=== PATIENT | male | born 1950 | race Caucasian/White ===

== ENCOUNTER 2017-05-30 16:59 | Emergency (ER) | payer MEDICARE, OTHER ==
[2017-05-30 17:30] VITALS: BP 132/64
--- NOTE | 2017-05-30 18:13 | ED Physician Documentation ---
History of Present Illness - Stated complaint Stated Complaint: LOW BP - Chief complaint Chief Complaint: Cardiac - History obtained from History obtained from: Patient, Other (PMD) - Additonal information Additional information: The patient is a 66-year-old male with history of Parkinson's disease, who was sent by private auto from his primary physician's office for further evaluation of low blood pressure and possible dysrhythmia. His blood pressure reading in the office was 106/66, and his pulse felt irregular. Electrocardiogram was performed, revealing a machine reading of sinus tachycardia with PACs, but with physician overread of possible atrial fibrillation with rapid ventricular response. The patient has been asymptomatic, reporting no chest pain, shortness of breath , lightheadedness, abdominal pain, nausea or vomiting, or change in color of his stools. Review of Systems Constitutional: denies: Fever, Chills Ears: denies: Tinnitus/ringing Nose: denies: Congestion Throat: denies: Sore throat Cardiac: denies: Chest pain / pressure, Palpitations Respiratory: denies: Dyspnea, Cough GI: denies: Abdominal Pain, Nausea, Vomiting : denies: Dysuria Skin: denies: Rash Musculoskeletal: denies: Back pain, Extremity swelling Neurologic: reports: Other (Parkinsonian tremors.). denies: Headache PD PAST MEDICAL HISTORY - Past Medical History Cardiovascular: Hypertension Neuro: Parkinson's Endocrine/Autoimmune: None - Present Medications Home Medications: Ambulatory Orders Medication Instructions Recorded Confirmed Carbidopa/Levodopa [Carbidopa-Levo 1 each PO DAILY 05/30/17 05/30/17 ER 50-200 Tab] Ropinirole HCl [Requip Xl] 8 mg PO DAILY 05/30/17 05/30/17 - Allergies Allergies/Adverse Reactions: Allergies Allergy/AdvReac Type Severity Reaction Status Date / Time No Known Drug Allergies Allergy Verified 05/30/17 17:12 - Living Situation Living Situation: reports: With spouse/s.o. Living Arrangement: reports: At home - Social History Does the pt smoke?: No PD ED PE NORMAL - Vitals Vital signs reviewed: Yes (Mild hypertension, with blood pressure 141/77. Normal pulse of 70.) - General General: Alert and oriented X 3, No acute distress, Well developed/nourished - HEENT HEENT: Atraumatic, EOMI, Pharynx benign - Neck Neck: No adenopathy, No JVD - Cardiac Cardiac: RRR, No murmur - Respiratory Respiratory: No respiratory distress, Clear bilaterally - Abdomen Abdomen: Soft, Non tender - Back Back: No CVA TTP - Derm Derm: No rash - Neuro Neuro: Alert and oriented X 3, No motor deficit, No sensory deficit, Other ( Parkinsonian tremors, most present in the right upper extremity.) Results - Vitals Vitals: Oxygen O2 Source Room air - EKG (time done) 17:21 Rate: Rate (enter#) (59) Rhythm: NSR [place]: Normal Intervals: Normal [place] QRS: Normal Ischemia: Normal ST segments Computer interpretation: Agree with computer PD MEDICAL DECISION MAKING - ED course Complexity details: reviewed results, re-evaluated patient, considered differential, d/w patient ED course: The patient presented from his primary physician's office where he was found to have low normal blood pressure and atrial tachycardia. He denies any symptoms associated with those findings, and remains asymptomatic in the emergency department. Repeat blood pressure here is slightly elevated at 141/77, and repeat prior to discharge is 132/64. Electrocardiogram here is completely normal with a normal sinus rhythm, rate of 59. Initially I ordered routine blood work, including CBC, chemistry panel, and troponin level. However the shoe dresser who initially attempted blood draw was unsuccessful, and the patient subsequently declined any further attempts at blood draw. Blood had been drawn in his primary physician's office, but the results are not available to me at this time. It is unlikely that the patient has had an acute myocardial event, so I do not think pursuing further workup at this time is clinically warranted. I discussed with him potentially worrisome signs or symptoms that should prompt reevaluation. Departure - Departure Disposition: 01 Home, Self Care Clinical Impression: Encounter for medical screening examination, Parkinson disease, History of atrial tachycardia Condition: Stable Instructions: ED Hypotension All Causes Follow-Up: Pablo Preciado MD [Provider Admit Priv/Credential] - Comments: Continue your medications as previously prescribed by Dr. Preciado. Follow up with your primary physician within 2 weeks. Return to the emergency department if you develop any lightheadedness, dizziness , shortness of breath, chest pain, or otherwise worsening symptoms. Discharge Date/Time: 05/30/17 18:19
== END 2017-05-30 18:19 | disposition home or self-care (01) ==
LOC: ED 16:59
DX: G20 Parkinson's disease (principal); I47.1 Supraventricular tachycardia; I10 Essential (primary) hypertension
CPT/HCPCS: 80053; 83690; 84484; 85025; 93005; 99283

== ENCOUNTER 2017-11-28 10:57 | Outpatient (CLI) | payer MEDICARE, OTHER ==
[2017-11-28 11:25] LABS: CALCIUM 8.9 mg/dL (8.5-10.3); CREATININE 0.8 mg/dL (0.6-1.2)
[2017-11-28] MEDS ORDERED: IOPAMIDOL-300 50 ML VIAL ONE (11:28)
[2017-11-28] MEDS ORDERED: IOPAMIDOL-300 100 ML VIAL ONE (11:28)
--- NOTE | 2017-11-28 13:29 | CT Report ---
Procedure Date: 11/28/2017 Accession Number: [id number] / [id number] Procedure: CT - Abdomen W/ CPT Code: FULL RESULT: EXAM: Abdomen W/ DATE: 11/28/2017 12:48 PM CLINICAL HISTORY: EPIGASTRIC DISCOMFORT COMPARISON: None. TECHNIQUE: Routine helical CT imaging was performed through the abdomen. IV contrast: 100 mL Isovue 300. Enteric contrast: Yes.. Reconstruction: Coronal and sagittal. In accordance with CT protocol optimization, one or more of the following dose reduction techniques were utilized for this exam: automated exposure control, adjustment of mA and/or KV based on patient size, or use of iterative reconstructive technique. FINDINGS: Lung Bases: Unremarkable. Liver: Normal. No masses. Gallbladder/Bile Ducts: Unremarkable. Spleen: Normal. Pancreas: Normal. No masses or ductal obstruction. Adrenal Glands: Normal. Kidneys: Cysts. No solid renal lesion or hydronephrosis. Peritoneal Cavity/Bowel: Normal. No free fluid, free air or adenopathy. No masses or acute inflammatory process. Vasculature: No aneurysms or other significant abnormality. Bones: No significant abnormality Other: None. IMPRESSION: No evident etiology for patient's epigastric discomfort. RADIA
[2017-12-03] MEDS ORDERED: IOPAMIDOL-300 50 ML VIAL PO ONE (07:24)
[2017-12-03] MEDS ORDERED: IOPAMIDOL-300 100 ML VIAL IVP ONE (07:24)
== END 2017-11-28 10:58 | disposition home or self-care (01) ==
LOC: LAB 10:57 → DI 10:58
PROVIDERS: ATTEND Family Medicine
DX: R10.13 Epigastric pain (principal)
CPT/HCPCS: 36415; 74160; 80048; Q9967

== ENCOUNTER 2018-05-07 14:17 | Outpatient (CLI) | payer MEDICARE, OTHER ==
[2018-05-07 19:05] LABS: BASOPHILS % (AUTO) 0.8 %; EOSINOPHILS % (AUTO) 0.8 %; HGB - HEMOGLOBIN 13.9 g/dL (14.0-18.0); LYMPHOCYTES # (AUTO) 1.5 10^3/uL (1.5-3.5); LYMPHOCYTES % (AUTO) 34.8 %; MEAN CORPUSCULAR HEMOGLOBIN 31.4 pg (27.0-31.0); MEAN CORPUSCULAR HGB CONC 33.2 g/dL (32.0-36.0); MEAN CORPUSCULAR VOLUME 94.5 fL (80.0-94.0); MEAN PLATELET VOLUME 10.4 fL (7.4-11.4); MONOCYTES # (AUTO) 0.3 10^3/uL (0.0-1.0); NEUTROPHILS # (AUTO) 2.4 10^3/uL (1.5-6.6); NEUTROPHILS % (AUTO) 55.6 %; PLT - PLATELET COUNT 160 10^3/uL (130-450); RED BLOOD COUNT 4.42 10^6/uL (4.70-6.10); RED CELL DISTRIBUTION WIDTH 13.3 % (12.0-15.0); WHITE BLOOD COUNT 4.3 x10^3/uL (4.8-10.8)
[2018-05-07 19:39] LABS: ALBUMIN 4.4 g/dL (3.2-5.5); ALBUMIN/GLOBULIN RATIO 1.8 (1.0-2.2); ALKALINE PHOSPHATASE 47 IU/L (42-121); ALT ALANINE AMINOTRANSFERASE < 10 IU/L (10-60); AST ASPARTATE AMINOTRANSFERASE 23 IU/L (10-42); BILIRUBIN,TOTAL 1.5 mg/dL (0.2-1.0); BUN - BLOOD UREA NITROGEN 27 mg/dL (6-20); CARBON DIOXIDE - CO2 28 mmol/L (21-32); CHLORIDE 104 mmol/L (101-111); CHOL/HDL RATIO 2.2 (<5.0); CHOLESTEROL 178 mg/dL; CREATININE 0.8 mg/dL (0.6-1.2); GFR - MDRD 96 (>89); GLUCOSE 99 mg/dL (70-100); HDL CHOLESTEROL 81 mg/dL; SODIUM 139 mmol/L (135-145); TOTAL PROTEIN 6.8 g/dL (6.7-8.2)
[2018-05-07 19:59] LABS: LDL CHOLESTEROL,DIRECT 91 mg/dL; LDLD/HDL RATIO 1.1 (<3.6)
== END 2018-05-07 14:18 | disposition home or self-care (01) ==
LOC: LAB.WCP 14:17
PROVIDERS: ATTEND Family Medicine
DX: I49.9 Cardiac arrhythmia, unspecified (principal); Z79.899 Other long term (current) drug therapy
CPT/HCPCS: 36415; 80053; 80061; 83721; 84443; 85025

== ENCOUNTER 2019-01-16 08:00 | Outpatient (CLI) | payer MEDICARE, OTHER ==
[2019-01-16 19:14] LABS: BASOPHILS % (AUTO) 0.5 %; EOSINOPHILS % (AUTO) 0.2 %; HGB - HEMOGLOBIN 13.9 g/dL (14.0-18.0); LYMPHOCYTES # (AUTO) 1.4 10^3/uL (1.5-3.5); LYMPHOCYTES % (AUTO) 31.4 %; MEAN CORPUSCULAR HEMOGLOBIN 31.5 pg (27.0-31.0); MEAN CORPUSCULAR VOLUME 98.4 fL (80.0-94.0); MEAN PLATELET VOLUME 12.7 fL (7.4-11.4); MONOCYTES # (AUTO) 0.4 10^3/uL (0.0-1.0); MONOCYTES % (AUTO) 9.1 %; NEUTROPHILS # (AUTO) 2.6 10^3/uL (1.5-6.6); NEUTROPHILS % (AUTO) 58.8 %; PLT - PLATELET COUNT 157 10^3/uL (130-450); RED BLOOD COUNT 4.41 10^6/uL (4.70-6.10); RED CELL DISTRIBUTION WIDTH 12.8 % (12.0-15.0); WHITE BLOOD COUNT 4.4 x10^3/uL (4.8-10.8)
[2019-01-16 19:45] LABS: ALBUMIN 4.3 g/dL (3.2-5.5); ALBUMIN/GLOBULIN RATIO 1.9 (1.0-2.2); ALKALINE PHOSPHATASE 36 IU/L (42-121); ALT ALANINE AMINOTRANSFERASE < 10 IU/L (10-60); AST ASPARTATE AMINOTRANSFERASE 27 IU/L (10-42); BILIRUBIN,TOTAL 1.6 mg/dL (0.2-1.0); BUN - BLOOD UREA NITROGEN 26 mg/dL (6-20); CREATININE 0.9 mg/dL (0.6-1.2); GFR - MDRD 83 (>89); TOTAL PROTEIN 6.6 g/dL (6.7-8.2)
[2019-01-16 19:55] LABS: CARBON DIOXIDE - CO2 26 mmol/L (21-32); CHLORIDE 109 mmol/L (101-111); GLUCOSE 118 mg/dL (70-100); SODIUM 144 mmol/L (135-145)
== END 2019-01-16 23:59 | disposition home or self-care (01) ==
LOC: LAB.WCP 08:00
PROVIDERS: ATTEND Family Medicine
DX: G20 Parkinson's disease (principal); Z12.5 Encounter for screening for malignant neoplasm of prostate
CPT/HCPCS: 36415; 80053; 85025; G0103; 84153

== ENCOUNTER 2019-07-10 12:59 | Outpatient (CLI) | payer MEDICARE, OTHER ==
--- NOTE | 2019-07-11 23:24 | Ultrasound Report ---
Reason: SCROTAL MASS Procedure Date: 07/10/2019 Accession Number: [id number] / [id number] Procedure: US - Testicle CPT Code: Final Report FULL RESULT: EXAM: SCROTAL ULTRASOUND EXAM DATE: 07/10/2019 01:04 PM. CLINICAL HISTORY: SCROTAL MASS. COMPARISON: None. TECHNIQUE: Real-time scanning was performed with static images obtained. Color-flow images were utilized. FINDINGS: Right: Testis: 3.7 x 2.1 x 3.0 cm. Normal size and echotexture. There is mild tubular ectasia of the rete testis. 2 intraparenchymal cysts are seen measuring 4 x 3 x 3 mm and 4 x 3 x 4 mm, respectively. No mass, calcification, or abnormal blood flow. Epididymis: 4.9 x 0.8 x 0.2 cm. Normal size and echotexture. A debris-filled cyst consistent with a spermatocele is seen in the epididymal head measuring 1.5 x 0.8 x 0.9 cm. A simple cyst is seen in the epididymal body measuring 7 x 4 x 14 mm. No abnormal blood flow. Hydrocele: Yes, containing debris Varicocele: Yes, measuring up to 3 mm with Valsalva maneuvers. Left: Testis: 4.1 x 1.8 x 3.0 cm. Normal size and echotexture. No mass, calcification, or abnormal blood flow. Epididymis: 5.3 x 1.0 x 0.6 cm. Normal size and echotexture. No mass or abnormal blood flow. Hydrocele: Yes. Varicocele: Yes, measuring up to 3.5 mm with Valsalva. IMPRESSION: 1. Tubular ectasia of the right rete testis with associated spermatocele. 2. Right debris-containing hydrocele. 3. Bilateral varicoceles. 4. Right epididymal cysts. RADIA
== END 2019-07-10 13:00 | disposition home or self-care (01) ==
LOC: DI 12:59
PROVIDERS: ATTEND Urology
DX: N43.41 Spermatocele of epididymis, single (principal); N43.3 Hydrocele, unspecified; I86.1 Scrotal varices; N50.3 Cyst of epididymis
CPT/HCPCS: 76870

== ENCOUNTER 2020-12-12 19:23 | Outpatient (CLI) | payer MEDICARE, OTHER | END 2020-12-12 19:24 | disposition EMS.NT | LOC: EMS 19:23 | DX: R23.2 Flushing (principal); R61 Generalized hyperhidrosis ==

== ENCOUNTER 2021-01-10 08:00 | Outpatient (CLI) | payer MEDICARE, OTHER ==
[2021-01-10 18:16] LABS: BASOPHILS % (AUTO) 0.6 %; EOSINOPHILS % (AUTO) 0.6 %; HCT - HEMATOCRIT 40.1 % (42.0-52.0); HGB - HEMOGLOBIN 12.9 g/dL (14.0-18.0); LYMPHOCYTES # (AUTO) 1.5 10^3/uL (1.5-3.5); LYMPHOCYTES % (AUTO) 29.5 %; MEAN CORPUSCULAR HEMOGLOBIN 30.9 pg (27.0-31.0); MEAN CORPUSCULAR HGB CONC 32.2 g/dL (32.0-36.0); MEAN CORPUSCULAR VOLUME 95.9 fL (80.0-94.0); MEAN PLATELET VOLUME 12.2 fL (7.4-11.4); MONOCYTES # (AUTO) 0.4 10^3/uL (0.0-1.0); MONOCYTES % (AUTO) 7.2 %; NEUTROPHILS # (AUTO) 3.1 10^3/uL (1.5-6.6); NEUTROPHILS % (AUTO) 61.9 %; PLT - PLATELET COUNT 171 10^3/uL (130-450); RED BLOOD COUNT 4.18 10^6/uL (4.70-6.10); RED CELL DISTRIBUTION WIDTH 12.7 % (12.0-15.0)
[2021-01-10 18:45] LABS: ALBUMIN 4.2 g/dL (3.2-5.5); ALBUMIN/GLOBULIN RATIO 1.8 (1.0-2.2); ALKALINE PHOSPHATASE 39 IU/L (42-121); ALT ALANINE AMINOTRANSFERASE < 10 IU/L (10-60); AST ASPARTATE AMINOTRANSFERASE 21 IU/L (10-42); BILIRUBIN,TOTAL 1.6 mg/dL (0.2-1.0); BUN - BLOOD UREA NITROGEN 24 mg/dL (6-20); CALCIUM 8.9 mg/dL (8.5-10.3); CARBON DIOXIDE - CO2 27 mmol/L (21-32); CHLORIDE 110 mmol/L (101-111); CHOL/HDL RATIO 2.3 (<5.0); CHOLESTEROL 152 mg/dL; CREATININE 0.7 mg/dL (0.6-1.2); GFR - MDRD 111 (>89); GLUCOSE 112 mg/dL (70-100); HDL CHOLESTEROL 67 mg/dL; POTASSIUM 3.9 mmol/L (3.5-5.0); SODIUM 143 mmol/L (135-145); TOTAL PROTEIN 6.5 g/dL (6.7-8.2); TRIGLYCERIDES 20 mg/dL
[2021-01-10 18:46] LABS: CREATININE,URINE 247.9 mg/dL; MICROALBUM/CREATININE RATIO,UR 4.8 ug/mg (<30.0); MICROALBUMIN,URINE 1.2 mg/dL (0-300.0)
[2021-01-10 18:53] LABS: THYROID STIMULATING HORMONE 0.8 uIU/mL (0.34-5.60)
[2021-01-10 20:24] LABS: ESTIMATED AVERAGE GLUCOSE 117 mg/dL (70-100); HEMOGLOBIN A1c% 5.7 % (4.27-6.07)
== END 2021-01-10 23:59 | disposition home or self-care (01) ==
LOC: LAB.WCP 08:00
PROVIDERS: ATTEND Internal Medicine
DX: G20 Parkinson's disease (principal); R73.01 Impaired fasting glucose; N40.1 Benign prostatic hyperplasia with lower urinary tract symptoms; R00.0 Tachycardia, unspecified
CPT/HCPCS: 36415; 80053; 80061; 82043; 82570; 83036; 83721; 84153; 84443; 85025

== ENCOUNTER 2021-11-29 12:41 | Outpatient (CLI) | payer MEDICARE, OTHER ==
--- NOTE | 2021-11-29 16:38 | MRI Report ---
PROCEDURE: Brain W/O INDICATIONS: PARKINSONS DISEASE TECHNIQUE: Noncontrast axial T1 spin echo, axial T2 fast spin echo, sagittal and axial FLAIR, coronal T2 fast sp in echo, axial gradient echo, axial diffusion and ADC through the brain. COMPARISON: None. FINDINGS: Global cerebral volume loss, moderate and advanced for age. Mild chronic microvascular ischemic turner es. There is no unexpected intracranial susceptibility. The major intracranial vascular flow-related signal voids are maintained. No restricted diffusion to indicate recent ischemia. Midline structures are normal in configuration. There is no mass effect or midline shift. The ventricular system and bas ilar cisterns are patent. No gross orbital abnormality. Paranasal sinuses and mastoid air cells are p redominantly clear. IMPRESSION: No acute intracranial abnormality. Global cerebral volume loss and chronic microvascular ischemic changes. Reviewed by: Jesus Calixto MD on 11/29/2021 4:37 PM PDT Approved by: Jesus Calixto MD on 11/29/2021 4:37 PM PDT Station ID: [id number]
== END 2021-11-29 12:42 | disposition home or self-care (01) ==
LOC: DI 12:41
PROVIDERS: ATTEND Internal Medicine
DX: G20 Parkinson's disease (principal); G31.89 Other specified degenerative diseases of nervous system; I67.82 Cerebral ischemia

== ENCOUNTER 2022-03-08 11:49 | Outpatient (CLI) | payer MEDICARE, OTHER ==
[2022-03-08 18:00] LABS: BASOPHILS % (AUTO) 0.5 %; EOSINOPHILS % (AUTO) 0.8 %; HCT - HEMATOCRIT 40.3 % (42.0-52.0); LYMPHOCYTES # (AUTO) 1.1 10^3/uL (1.5-3.5); LYMPHOCYTES % (AUTO) 29.2 %; MEAN CORPUSCULAR HEMOGLOBIN 30.1 pg (27.0-31.0); MEAN CORPUSCULAR HGB CONC 32.3 g/dL (32.0-36.0); MEAN CORPUSCULAR VOLUME 93.3 fL (80.0-94.0); MEAN PLATELET VOLUME 12.6 fL (7.4-11.4); MONOCYTES # (AUTO) 0.4 10^3/uL (0.0-1.0); MONOCYTES % (AUTO) 9.5 %; NEUTROPHILS # (AUTO) 2.2 10^3/uL (1.5-6.6); PLT - PLATELET COUNT 162 10^3/uL (130-450); RED BLOOD COUNT 4.32 10^6/uL (4.70-6.10); RED CELL DISTRIBUTION WIDTH 12.5 % (12.0-15.0); WHITE BLOOD COUNT 3.7 x10^3/uL (4.8-10.8)
[2022-03-08 18:22] LABS: ALBUMIN 4.3 g/dL (3.2-5.5); ALBUMIN/GLOBULIN RATIO 1.8 (1.0-2.2); ALKALINE PHOSPHATASE 35 IU/L (42-121); ALT ALANINE AMINOTRANSFERASE < 10 IU/L (10-60); AST ASPARTATE AMINOTRANSFERASE 26 IU/L (10-42); BILIRUBIN,TOTAL 1.5 mg/dL (0.2-1.0); BUN - BLOOD UREA NITROGEN 27 mg/dL (6-20); CALCIUM 9.3 mg/dL (8.5-10.3); CARBON DIOXIDE - CO2 30 mmol/L (21-32); CHLORIDE 106 mmol/L (101-111); CHOL/HDL RATIO 2.6 (<5.0); CHOLESTEROL 157 mg/dL; CREATININE 0.9 mg/dL (0.6-1.2); GFR - MDRD 83 (>89); GLUCOSE 129 mg/dL (70-100); HDL CHOLESTEROL 61 mg/dL; POTASSIUM 4.3 mmol/L (3.5-5.0); SODIUM 143 mmol/L (135-145); TOTAL PROTEIN 6.7 g/dL (6.7-8.2); TRIGLYCERIDES 19 mg/dL
[2022-03-08 18:23] LABS: THYROID STIMULATING HORMONE 0.88 uIU/mL (0.34-5.60)
[2022-03-08 20:55] LABS: ESTIMATED AVERAGE GLUCOSE 117 mg/dL (70-100); HEMOGLOBIN A1c% 5.7 % (4.27-6.07)
== END 2022-03-08 11:50 | disposition home or self-care (01) ==
LOC: LAB.N 11:49
PROVIDERS: ATTEND Internal Medicine
DX: G20 Parkinson's disease (principal); Z13.220 Encounter for screening for lipoid disorders; R73.01 Impaired fasting glucose; N40.1 Benign prostatic hyperplasia with lower urinary tract symptoms; R00.0 Tachycardia, unspecified
CPT/HCPCS: 36415; 80053; 80061; 83036; 83721; 84153; 84443; 85025

== ENCOUNTER 2022-04-30 11:10 | Emergency (ER) | payer MEDICARE, OTHER ==
--- NOTE | 2022-04-30 12:56 | ED Physician Documentation ---
History of Present Illness - Stated complaint Stated Complaint: FALL/LT LEG PX - Chief complaint Chief Complaint: Trauma Ext - Additonal information Additional information: 71-year-old male who has a history of Parkinson disorder presents the emergency department for evaluation of pain on his left hip and leg. He reports that he fell when trying to ascend some stairs on Saturday. He landed on his left side. Did not strike his head or lose consciousness but ever since then he has had difficulty ambulating at home and is now using a walker which she had not previously done. He is also having difficulty managing the stairs at his house. Patient did not strike his head or lose consciousness. He is not anticoagulated. He is denying pain of the head upper chest or back. Meds: Carbidopa/levodopa, as needed Flomax, Requip Review of Systems Constitutional: denies: Fever, Chills Cardiac: reports: Reviewed and negative Respiratory: reports: Reviewed and negative GI: reports: Reviewed and negative : reports: Reviewed and negative Musculoskeletal: reports: Back pain, Extremity pain, Joint pain Neurologic: reports: Reviewed and negative Psychiatric: reports: Reviewed and negative PD PAST MEDICAL HISTORY - Past Medical History Cardiovascular: Hypertension Endocrine/Autoimmune: None - Present Medications Home Medications: Ambulatory Orders Medication Instructions Recorded Confirmed Carbidopa/Levodopa [Carbidopa-Levo 1 each PO DAILY 05/30/17 05/30/17 ER 50-200 Tab] Ropinirole HCl [Requip Xl] 8 mg PO DAILY 05/30/17 05/30/17 - Allergies Allergies/Adverse Reactions: Allergies Allergy/AdvReac Type Severity Reaction Status Date / Time No Known Drug Allergies Allergy Verified 04/30/22 11:23 - Social History Does the pt smoke?: No PD ED PE NORMAL - General General: Alert and oriented X 3, No acute distress, Well developed/nourished, Other (Tall lanky gentleman. Sitting in a wheelchair) - HEENT HEENT: Atraumatic, Ears normal, Moist mucous membranes - Neck Neck: Supple, no meningeal sign, No adenopathy - Cardiac Cardiac: RRR, No murmur, No gallop - Respiratory Respiratory: No respiratory distress, Clear bilaterally - Abdomen Abdomen: Normal bowel sounds, Soft, Non tender - Back Back: No CVA TTP - Derm Derm: Normal color, Warm and dry - Extremities Extremities: No deformity, No tenderness to palpate. No: Normal ROM s pain ( No shortening or malrotation of the left leg. No tenderness elicited with palpation of the proximal femur or iliac crest pelvic girdle. There was some pain in the groin region with external rotation) - Neuro Neuro: Alert and oriented X 3, motel manager 2-12 intact Eye Opening: Spontaneous Motor: Obeys Commands Verbal: Oriented GCS Score: 15 Results - Vitals Vitals: Vital Signs - 24 hr 04/30/22 04/30/22 11:19 13:24 Temperature 36.9 C 36.7 C Heart Rate 68 62 Respiratory 16 20 Rate Blood Pressure 143/84 H 137/78 H O2 Saturation 100 98 Oxygen O2 Source Room air - Labs Labs: Laboratory Tests 04/30/22 04/30/22 13:15 13:15 WBC 6.2 RBC 4.15 L Hgb 12.7 L Hct 38.7 L MCV 93.3 MCH 30.6 MCHC 32.8 RDW 12.6 Plt Count 161 MPV 11.0 Neut # (Auto) 3.9 Lymph # (Auto) 1.4 L [place] # (Auto) 0.7 Eos # (Auto) 0.1 Baso # (Auto) 0.0 Absolute Nucleated RBC 0.00 Nucleated RBC % 0.0 Sodium 140 Potassium 4.3 Chloride 105 Carbon Dioxide 31 Anion Gap 4.0 L BUN 26 H Creatinine 0.8 Estimated GFR (MDRD) 95 Glucose 125 H Calcium 8.9 Total Bilirubin 0.7 AST 24 ALT < 10 L Alkaline Phosphatase 55 Total Protein 6.8 Albumin 4.1 Globulin 2.7 Albumin/Globulin Ratio 1.5 Lipase 59 H - Rads (name of study) CT abd Radiology: Final report received (No acute process. Nonobstructing right renal calculus. Normal appendix.) PD MEDICAL DECISION MAKING - ED course Complexity details: reviewed results, re-evaluated patient, considered differential, d/w patient, d/w family ED course: 71-year-old male presents to the emergency department for evaluation of left groin and hip pain. He had a witnessed fall about 48 hours ago when he was climbing some stairs at a store in [place] and fell onto his left side. With some assistance he was able to get up but over the last 48 hours he has had some pain especially with ambulation. This gentleman does have a longstanding history of Parkinson's for which she is on carbidopa levodopa. Reportedly underwent an MRI of his head a number of weeks ago and his neurologist reported that there were significant changes over the last 10 years indicating a progression of the Parkinson's disorder. On exam I was unable to elicit any tenderness with palpation of the pelvic ring proximal trochanter or femur. Most of the pain was elicited for the patient in the left medial groin region especially with walking or ambulation. X-ray of the hip and pelvis was negative. I did consider occult fracture and therefore performed a CT of the abdomen and pelvis with contrast with no acute findings noted. On reevaluation the patient was noted to be up and ambulating using a walker th ough he does have unsteady gait. I discussed with patient's the likelihood that an occult fracture exists to be around 10% or less. I did offer MRI imaging but she felt it was overkill today. Her biggest concern is managing the patient at home with a number of stairs in the house. I discussed that I did not feel that he was appropriate to a send stairs. At this time he is stable for discharge home. We have given the family resources on lift assist and I am making a recommendation to follow-up closely with primary care provider in order to obtain home health referral and evaluation. Unfortunately I think the fall from 48 hours ago Boni a progressive decline in his neurological and functional status with long-term Parkinson's disorder Departure - Departure Disposition: 01 Home, Self Care Clinical Impression: Parkinson's disease, Left groin pain Fall down stairs Qualifiers: Encounter type: initial encounter Qualified Code(s): W10.8XXA - Fall (on) (from) other stairs and steps, initial encounter Condition: Stable Record reviewed to determine appropriate education?: Yes Follow-Up: Olegario Whitley MD [Primary Care Provider] - Comments: Jose D was seen today in the emergency department for pain in the left groin and hip region after a fall downstairs 2 days ago. The x-ray of his hip and pelvis do not show anything worrisome. The CT of his abdomen and pelvis also did not show any obvious broken bones or worrisome process within the abdomen. We did obtain a CBC and electrolytes today that were also without worrisome findings. It is possible that there is a very subtle hip fracture that we are missing as MRI is the most sensitive. We did discuss the possibility of doing that today but The decision was made to defer that unless his symptoms fail to improve. Unfortunately I think that what we are seeing is a progressive decline in the functional status for Jose D due to his Parkinson's. Dr. Whitley is scheduled to see patients in follow-up for the ER. I would call his office this afternoon or early tomorrow in order to arrange follow-up. Jose D would benefit from referral for home health as well as progressive physical therapy for gait and balance. I do not think it is safe for Jose D to climb or descend the stairs to his bedroom at home as at think that that would put him at severe risk of a fall. I do recommend that most of the care be done down stairs in the living room area. If at any point he has further falls, strikes his head, loses consciousness or has any strokelike symptoms he should return immediately to the ER for second evaluation
[2022-04-30] MEDS ORDERED: iohexoL-300 100 ML VIAL ONE (13:18)
[2022-04-30 13:21] LABS: BASOPHILS % (AUTO) 0.5 %; EOSINOPHILS # (AUTO) 0.1 10^3/uL (0.0-0.7); EOSINOPHILS % (AUTO) 1.8 %; HCT - HEMATOCRIT 38.7 % (42.0-52.0); HGB - HEMOGLOBIN 12.7 g/dL (14.0-18.0); LYMPHOCYTES # (AUTO) 1.4 10^3/uL (1.5-3.5); LYMPHOCYTES % (AUTO) 22.5 %; MEAN CORPUSCULAR HEMOGLOBIN 30.6 pg (27.0-31.0); MEAN CORPUSCULAR HGB CONC 32.8 g/dL (32.0-36.0); MEAN CORPUSCULAR VOLUME 93.3 fL (80.0-94.0); MONOCYTES # (AUTO) 0.7 10^3/uL (0.0-1.0); MONOCYTES % (AUTO) 11.8 %; NEUTROPHILS # (AUTO) 3.9 10^3/uL (1.5-6.6); NEUTROPHILS % (AUTO) 63.1 %; PLT - PLATELET COUNT 161 10^3/uL (130-450); RED BLOOD COUNT 4.15 10^6/uL (4.70-6.10); RED CELL DISTRIBUTION WIDTH 12.6 % (12.0-15.0); WHITE BLOOD COUNT 6.2 x10^3/uL (4.8-10.8)
--- NOTE | 2022-04-30 13:27 | XRAY Report ---
PROCEDURE: Hip w/Pelvis 2-3V LT INDICATIONS: glf 4 days ago TECHNIQUE: AP pelvis with lateral view(s) of the left hip(s). COMPARISON: None. FINDINGS: Bones: No fractures or dislocations. Pelvic ring appears intact. No suspicious bony lesions. Soft tissues: The visualized bowel gas pattern is normal. No suspicious soft tissue calcifications. IMPRESSION: No acute fracture. No osseous lesion. If symptoms and/or clinical suspicion for patholog y continue, further assessment with repeat plain films, or advanced imaging (e.g., CT, MRI, or bone s can) is recommended for further assessment. Reviewed by: Izabella Pantoja MD on 04/30/2022 1:25 PM PST Approved by: Izabella Pantoja MD on 04/30/2022 1:25 PM [facility] [place] Station ID: [id number]
[2022-04-30 13:34] LABS: ALBUMIN 4.1 g/dL (3.2-5.5); ALBUMIN/GLOBULIN RATIO 1.5 (1.0-2.2); ALKALINE PHOSPHATASE 55 IU/L (42-121); ALT ALANINE AMINOTRANSFERASE < 10 IU/L (10-60); AST ASPARTATE AMINOTRANSFERASE 24 IU/L (10-42); BILIRUBIN,TOTAL 0.7 mg/dL (0.2-1.0); BUN - BLOOD UREA NITROGEN 26 mg/dL (6-20); CALCIUM 8.9 mg/dL (8.5-10.3); CARBON DIOXIDE - CO2 31 mmol/L (21-32); CHLORIDE 105 mmol/L (101-111); CREATININE 0.8 mg/dL (0.6-1.2); GFR - MDRD 95 (>89); GLUCOSE 125 mg/dL (70-100); LIPASE 59 U/L (22-51); POTASSIUM 4.3 mmol/L (3.5-5.0); SODIUM 140 mmol/L (135-145); TOTAL PROTEIN 6.8 g/dL (6.7-8.2)
[2022-04-30] MEDS ORDERED: iohexoL-300 100 ML VIAL IVP ONE (14:17)
--- NOTE | 2022-04-30 14:21 | CT Report ---
PROCEDURE: ABDOMEN/PELVIS W INDICATIONS: left hip pain after fall; ? groin pain CONTRAST: 100ml Omnipaque 300 TECHNIQUE: After the administration of IV contrast, 5 mm thick sections acquired from the diaphragms to the symp hysis. 5 mm thick coronal and sagittal reformats were acquired. For radiation dose reduction, the f ollowing was used: automated exposure control, adjustment of mA and/or kV according to patient size. COMPARISON: CT dated 11/28/2017 FINDINGS: Image quality: Excellent. ABDOMEN: Lung bases: Lung bases are clear. Heart size is normal. Solid organs: Liver and spleen are normal in size. There are a few small low-density foci within the right hepatic lobe, as before. Gallbladder is within normal limits Biliary system is non dilated. Pancreas enhances normally. No adrenal nodules. Kidneys demonstrate normal size and enhancement, wi thout hydronephrosis. Left parapelvic renal cysts are present, as before. There is a nonobstructing right interpolar renal calculus measuring 4 mm, new since the prior examination. No hydronephrosis. Peritoneum and bowel: Small hiatal hernia. Bowel loops demonstrate normal wall thickness and caliber . No free fluid or air. Normal appendix. Nodes and vessels: No retroperitoneal or mesenteric adenopathy by size criteria. Aorta and inferior vena cava are normal in size. Miscellaneous: No ventral hernias. PELVIS: Genitourinary: Bladder wall thickness is normal. Miscellaneous: No inguinal hernias or adenopathy. Bones: No suspicious bony lesions. No vertebral body compression fractures. IMPRESSION: 1. No acute process. 2. Nonobstructing right renal calculus. 3. Normal appendix. Reviewed by: Izabella Pantoja MD on 04/30/2022 2:20 PM PST Approved by: Izabella Pantoja MD on 04/30/2022 2:20 PM PST Station ID: [id number]
[2022-04-30 15:27] VITALS: BP 173/67
== END 2022-04-30 15:45 | disposition home or self-care (01) ==
LOC: ED 11:10
DX: M25.552 Pain in left hip (principal); W10.8XXA Fall (on) (from) other stairs and steps, initial encounter; I10 Essential (primary) hypertension; G20 Parkinson's disease
CPT/HCPCS: 36415; 73502; 74177; 80053; 83690; 85025; 99282; 99284; Q9967

== ENCOUNTER 2022-07-04 08:00 | Outpatient (CLI) | payer MEDICARE, OTHER ==
[2022-07-04 20:38] LABS: BASOPHILS % (AUTO) 0.6 %; EOSINOPHILS # (AUTO) 0.1 10^3/uL (0.0-0.7); EOSINOPHILS % (AUTO) 0.9 %; HCT - HEMATOCRIT 40.4 % (42.0-52.0); HGB - HEMOGLOBIN 12.7 g/dL (14.0-18.0); LYMPHOCYTES # (AUTO) 1.5 10^3/uL (1.5-3.5); LYMPHOCYTES % (AUTO) 28.5 %; MEAN CORPUSCULAR HEMOGLOBIN 30.2 pg (27.0-31.0); MEAN CORPUSCULAR HGB CONC 31.4 g/dL (32.0-36.0); MEAN PLATELET VOLUME 12.1 fL (7.4-11.4); MONOCYTES # (AUTO) 0.5 10^3/uL (0.0-1.0); MONOCYTES % (AUTO) 8.7 %; NEUTROPHILS # (AUTO) 3.3 10^3/uL (1.5-6.6); NEUTROPHILS % (AUTO) 61.1 %; PLT - PLATELET COUNT 175 10^3/uL (130-450); RED BLOOD COUNT 4.21 10^6/uL (4.70-6.10); RED CELL DISTRIBUTION WIDTH 12.5 % (12.0-15.0); WHITE BLOOD COUNT 5.4 x10^3/uL (4.8-10.8)
[2022-07-04 20:55] LABS: ALBUMIN/GLOBULIN RATIO 1.5 (1.0-2.2); ALKALINE PHOSPHATASE 68 IU/L (42-121); ALT ALANINE AMINOTRANSFERASE < 10 IU/L (10-60); AST ASPARTATE AMINOTRANSFERASE 19 IU/L (10-42); BUN - BLOOD UREA NITROGEN 28 mg/dL (6-20); CALCIUM 8.6 mg/dL (8.5-10.3); CARBON DIOXIDE - CO2 28 mmol/L (21-32); CHLORIDE 102 mmol/L (101-111); CREATININE 0.8 mg/dL (0.6-1.2); GFR - MDRD 94 (>89); GLUCOSE 102 mg/dL (70-100); POTASSIUM 4.1 mmol/L (3.5-5.0); SODIUM 140 mmol/L (135-145); TOTAL PROTEIN 6.6 g/dL (6.7-8.2)
== END 2022-07-04 23:59 | disposition home or self-care (01) ==
LOC: LAB.N 08:00
PROVIDERS: ATTEND Nurse Practitioner
DX: L03.90 Cellulitis, unspecified (principal)
CPT/HCPCS: 36415; 80053; 85025; 87070; 87077; 87181; 87205

== ENCOUNTER 2022-09-19 10:40 | Outpatient (CLI) | payer MEDICARE, OTHER ==
[2022-09-19 12:39] LABS: ESTIMATED AVERAGE GLUCOSE 137 mg/dL (70-100); HEMOGLOBIN A1c% 6.4 % (4.27-6.07)
[2022-09-19 13:25] LABS: CALCIUM 8.8 mg/dL (8.5-10.3); CREATININE 0.8 mg/dL (0.6-1.2); POTASSIUM 3.8 mmol/L (3.5-5.0)
== END 2022-09-19 10:41 | disposition home or self-care (01) ==
LOC: LAB.N 10:40
PROVIDERS: ATTEND Internal Medicine
DX: R73.01 Impaired fasting glucose (principal)
CPT/HCPCS: 36415; 80048; 83036

== ENCOUNTER 2023-01-23 15:59 | Outpatient (CLI) | payer MEDICARE, OTHER ==
[2023-01-23 18:01] LABS: BASOPHILS % (AUTO) 0.8 %; EOSINOPHILS # (AUTO) 0.1 10^3/uL (0.0-0.7); EOSINOPHILS % (AUTO) 1.5 %; HCT - HEMATOCRIT 40.7 % (42.0-52.0); HGB - HEMOGLOBIN 13.2 g/dL (14.0-18.0); LYMPHOCYTES # (AUTO) 1.6 10^3/uL (1.5-3.5); LYMPHOCYTES % (AUTO) 34.1 %; MEAN CORPUSCULAR HEMOGLOBIN 30.7 pg (27.0-31.0); MEAN CORPUSCULAR HGB CONC 32.4 g/dL (32.0-36.0); MEAN CORPUSCULAR VOLUME 94.7 fL (80.0-94.0); MONOCYTES # (AUTO) 0.5 10^3/uL (0.0-1.0); MONOCYTES % (AUTO) 9.4 %; NEUTROPHILS # (AUTO) 2.6 10^3/uL (1.5-6.6); PLT - PLATELET COUNT 169 10^3/uL (130-450); RED CELL DISTRIBUTION WIDTH 12.6 % (12.0-15.0); WHITE BLOOD COUNT 4.8 x10^3/uL (4.8-10.8)
[2023-01-23 18:02] LABS: ALBUMIN 4.2 g/dL (3.2-5.5); ALBUMIN/GLOBULIN RATIO 1.8 (1.0-2.2); ALKALINE PHOSPHATASE 50 IU/L (42-121); ALT ALANINE AMINOTRANSFERASE 4 IU/L (10-60); AST ASPARTATE AMINOTRANSFERASE 19 IU/L (10-42); BILIRUBIN,TOTAL 1.5 mg/dL (0.2-1.0); BUN - BLOOD UREA NITROGEN 14 mg/dL (6-20); CALCIUM 9.3 mg/dL (8.5-10.3); CARBON DIOXIDE - CO2 31 mmol/L (21-32); CHLORIDE 105 mmol/L (101-111); CHOL/HDL RATIO 2.2 (<5.0); CHOLESTEROL 146 mg/dL; CREATININE 0.8 mg/dL (0.6-1.3); GFR - MDRD 94 (>89); GLUCOSE 106 mg/dL (74-104); HDL CHOLESTEROL 66 mg/dL; POTASSIUM 4.4 mmol/L (3.5-4.5); SODIUM 138 mmol/L (135-145); TOTAL PROTEIN 6.5 g/dL (6.4-8.9); TRIGLYCERIDES 31 mg/dL (48-352)
[2023-01-23 20:08] LABS: ESTIMATED AVERAGE GLUCOSE 120 mg/dL (70-100); HEMOGLOBIN A1c% 5.8 % (4.27-6.07)
== END 2023-01-23 16:00 | disposition home or self-care (01) ==
LOC: LAB.N 15:59
PROVIDERS: ATTEND Internal Medicine
DX: R73.03 Prediabetes (principal); G20 Parkinson's disease; Z79.899 Other long term (current) drug therapy
CPT/HCPCS: 36415; 80053; 80061; 83036; 83721; 85025

== ENCOUNTER 2023-12-26 15:41 | Outpatient (CLI) | payer MEDICARE, OTHER ==
[2023-12-26 17:35] LABS: BASOPHILS % (AUTO) 0.4 %; EOSINOPHILS # (AUTO) 0.1 10^3/uL (0.0-0.7); HCT - HEMATOCRIT 41.4 % (42.0-52.0); HGB - HEMOGLOBIN 13.3 g/dL (14.0-18.0); LYMPHOCYTES # (AUTO) 1.6 10^3/uL (1.5-3.5); LYMPHOCYTES % (AUTO) 33.1 %; MEAN CORPUSCULAR HEMOGLOBIN 30.4 pg (27.0-31.0); MEAN CORPUSCULAR HGB CONC 32.1 g/dL (32.0-36.0); MEAN CORPUSCULAR VOLUME 94.5 fL (80.0-94.0); MEAN PLATELET VOLUME 12.1 fL (7.4-11.4); MONOCYTES # (AUTO) 0.4 10^3/uL (0.0-1.0); MONOCYTES % (AUTO) 8.1 %; NEUTROPHILS # (AUTO) 2.8 10^3/uL (1.5-6.6); NEUTROPHILS % (AUTO) 57.2 %; PLT - PLATELET COUNT 207 10^3/uL (130-450); RED BLOOD COUNT 4.38 10^6/uL (4.70-6.10); RED CELL DISTRIBUTION WIDTH 12.3 % (12.0-15.0); WHITE BLOOD COUNT 4.8 x10^3/uL (4.8-10.8)
[2023-12-26 17:46] LABS: ALBUMIN 4.1 g/dL (3.2-5.5); ALBUMIN/GLOBULIN RATIO 2.2 (1.0-2.2); BILIRUBIN,TOTAL 1.1 mg/dL (0.2-1.0); CALCIUM 9.5 mg/dL (8.5-10.3); CREATININE 0.7 mg/dL (0.6-1.3); POTASSIUM 3.9 mmol/L (3.5-4.5)
[2023-12-26 18:05] LABS: THYROID STIMULATING HORMONE 1.19 uIU/mL (0.34-5.60)
[2023-12-26 21:39] LABS: ESTIMATED AVERAGE GLUCOSE 117 mg/dL (70-100); HEMOGLOBIN A1c% 5.7 % (4.27-6.07)
== END 2023-12-26 15:42 | disposition home or self-care (01) ==
LOC: LAB.N 15:41
PROVIDERS: ATTEND Psychiatry & Neurology Neurology
DX: R73.03 Prediabetes (principal); R53.83 Other fatigue; E55.9 Vitamin D deficiency, unspecified; I34.0 Nonrheumatic mitral (valve) insufficiency
CPT/HCPCS: 36415; 80053; 80061; 82306; 82607; 82746; 83036; 83721; 84443; 85025

== ENCOUNTER 2024-03-07 13:05 | Emergency (ER) | payer MEDICARE, OTHER ==
--- NOTE | 2024-03-07 14:23 | ED Physician Documentation ---
History of Present Illness - Stated complaint Stated Complaint: RT HAND LIMP - Chief complaint Chief Complaint: Neuro - Additonal information Additional information: 73-year-old male with advanced Parkinson's presents emergency department for right arm weakness. Patient says he took a nap on Saturday when he awoke he could not raise his hand to his mouth. Overall since then it has improved but he is having a hard time grasping or holding things. He had a virtual appointment with his neurologist yesterday who told him that he need to come to the emergency department to get evaluated for possible stroke and he did not come in yesterday because he felt like it was too late to come to the emergency department. He is not on any blood thinners he has no history of strokes in the past. Daily medications that he takes daily or his carbidopa levodopa and ropinirole. His neurologist is Dr. Carmona in [place]. PD PAST MEDICAL HISTORY - Past Medical History Past Medical History: Yes Cardiovascular: Hypertension Respiratory: None Neuro: Parkinson's Endocrine/Autoimmune: None GI: None : None HEENT: None Psych: None Musculoskeletal: Chronic back pain - Past Surgical History Past Surgical History: Yes HEENT: Tonsil/Adenoidectomy - Present Medications Home Medications: Ambulatory Orders Medication Instructions Recorded Confirmed Carbidopa/Levodopa [Carbidopa-Levo 1 each PO QID 05/30/17 07/18/22 ER 50-200 Tab] Cholecalciferol [Vitamin D3] 1 cap PO DAILY 07/18/22 07/18/22 [place]-3S/Dha/Epa/Fish Oil [Fish 1 cap PO DAILY 07/18/22 07/18/22 Oil 1,200 mg Softgel] Ropinirole HCl [Ropinirole ER] 2 mg PO DAILY 07/18/22 07/18/22 Ropinirole HCl [Ropinirole ER] 4 mg PO QPM 07/18/22 07/18/22 Tamsulosin [Flomax] 1 cap PO QPM 07/18/22 07/18/22 Multivitamin 1 tab PO DAILY 09/13/22 09/13/22 - Allergies Allergies/Adverse Reactions: Allergies Allergy/AdvReac Type Severity Reaction Status Date / Time No Known Drug Allergies Allergy Verified 03/07/24 13:36 - Social History Does the pt smoke?: No Smoking Status: Never smoker Does the pt drink ETOH?: Yes Does the pt have substance abuse?: No - Immunizations Immunizations are current?: No Immunizations: Other immun not current - POLST Patient has POLST: No PD ED PE NORMAL - Vitals Vital signs reviewed: Yes - General General: Alert and oriented X 3, No acute distress, Well developed/nourished - HEENT HEENT: PERRL, EOMI, Moist mucous membranes - Cardiac Cardiac: RRR - Respiratory Respiratory: No respiratory distress, Clear bilaterally - Abdomen Abdomen: Normal bowel sounds, Soft, Non tender, Non distended, No organomegaly - Derm Derm: Normal color, Warm and dry, No rash - Neuro Neuro: Alert and oriented X 3, No sensory deficit, Normal speech Eye Opening: Spontaneous Motor: Obeys Commands Verbal: Oriented GCS Score: 15 - Psych Psych: Normal mood, Normal affect PD ED PE EXPANDED - Neuro Neuro: Normal motor (difficulty with resistance of RUE), Normal Sensation, PERRL, Normal finger nose, Other (RUE 4/5, LUE 5/5). No: Dyscongugate gaze, Nystagmus, Aphasia Results - Vitals Vitals: Vital Signs - 24 hr 03/07/24 03/07/24 03/07/24 13:36 13:43 14:43 Temperature 36.1 C L Heart Rate 62 57 L 45 L Respiratory 18 16 18 Rate Blood Pressure 149/77 H 174/76 H 172/71 H O2 Saturation 100 99 100 03/07/24 03/07/24 03/07/24 15:30 16:00 16:30 Temperature Heart Rate 46 L 48 L 49 L Respiratory 12 14 18 Rate Blood Pressure 158/53 H 196/78 H 177/71 H O2 Saturation 99 99 99 03/07/24 03/07/24 03/07/24 17:00 17:30 18:30 Temperature Heart Rate 82 52 L 56 L Respiratory 20 20 18 Rate Blood Pressure 170/81 H 161/84 H 191/69 H O2 Saturation 52 L 99 99 03/07/24 03/07/24 19:00 19:20 Temperature Heart Rate 62 56 L Respiratory 18 10 L Rate Blood Pressure 182/74 H 182/74 H O2 Saturation 100 100 Oxygen O2 Source Room air - EKG (time done) 1431 EKG releavant findings:: EKG personally interpreted by author of this note. Relevant findings are: Rate: Rate (enter#) (51) Rhythm: NSR [place]: RAD QRS: Normal Ischemia: Normal ST segments Computer interpretation: Agree with computer - Labs Labs: Laboratory Tests 03/07/24 03/07/24 03/07/24 14:35 14:35 14:48 WBC 6.1 RBC 4.13 L Hgb 12.6 L Hct 39.2 L MCV 94.9 H MCH 30.5 MCHC 32.1 RDW 12.3 Plt Count 195 MPV 10.9 Neut # (Auto) 3.8 Lymph # (Auto) 1.6 [place] # (Auto) 0.6 Eos # (Auto) 0.1 Baso # (Auto) 0.0 Absolute Nucleated RBC 0.00 Nucleated RBC % 0.0 PT 12.7 H INR 1.2 Sodium 144 Potassium 3.7 Chloride 108 Carbon Dioxide 30 Anion Gap 6.0 BUN 26 H Creatinine 0.8 Estimated GFR (MDRD) 94 Glucose 118 H Calcium 9.2 Total Bilirubin 0.8 AST 23 ALT 3 L Alkaline Phosphatase 65 Total Protein 6.1 L Albumin 3.9 Globulin 2.2 Albumin/Globulin Ratio 1.8 Lipase 24 - Rads (name of study) Head CT without Relevant Findings:: Final report received, EMP independent interpretation of test, Other (Posterior fossa arachnoid cysts stable and unchanged. No acute intracranial abnormalities or findings.) Angio head and neck CT Relevant Findings:: Final report received, EMP independent interpretation of test, Other (No significant intracranial arterial abnormality seen no significant abnormality seen within the arteries in the neck.) Brain MRI without Relevant Findings:: Final report received, EMP independent interpretation of test, Other (No acute infarction no intracranial bleed midline shift or mass effect. Age-related volume loss and mild white matter chronic ischemic small ve ssel disease.) PD Medical Decision Making - ED course ED course: 73-year-old male presents emergency department for concerns of right arm weakness. Differentials include but not limited to advanced Parkinson's, possible CVA versus TIA, possible pinched nerve. Labs are complete for further evaluation no leukocytosis mild anemia hemoglobin 12.6 PT/INR unremarkable, electrolytes and kidney function appear to be within normal limits as well. Head CT was completed for further evaluation and no acute abnormalities are visualized. EKG was also found to be unremarkable and no A-fib. CT angio head and neck did not reveal any head or neck arterial abnormalities. We pursued a brain MRI without contrast for further investigation of possible TIA and no acute infarctions are visualized no intracranial bleed midline shift or mass effect there was chronic findings of chronic ischemic small vessel disease and age-related volume loss. Patient was reassured after finding out this information has a follow-up appoint with his neurologist coming up and said that they would call and let him know about today's ER findings. I do not see any need for further emergent workup. He is given return precautions told to follow-up with his neurologist outpatient NIH score is 1 patient is safe for discharge at this time. Departure - Departure Disposition: 01 Home, Self Care Clinical Impression: Right arm weakness, Dizziness Instructions: ED Weakness [facility] Comments: Thank you for trusting us with your care. We have completed a thorough workup while you are here in the emergency department including labs, head CT, CT angio head and neck, MRI brain and all findings have come back within normal limits. Please follow-up with your neurologist to discuss today's ER visit and discuss further outpatient workup and treatment. Forms: PCP List Discharge Date/Time: 03/07/24 19:41
[2024-03-07 14:43] LABS: BASOPHILS % (AUTO) 0.5 %; EOSINOPHILS # (AUTO) 0.1 10^3/uL (0.0-0.7); EOSINOPHILS % (AUTO) 1.6 %; HCT - HEMATOCRIT 39.2 % (42.0-52.0); HGB - HEMOGLOBIN 12.6 g/dL (14.0-18.0); LYMPHOCYTES # (AUTO) 1.6 10^3/uL (1.5-3.5); LYMPHOCYTES % (AUTO) 26.1 %; MEAN CORPUSCULAR HEMOGLOBIN 30.5 pg (27.0-31.0); MEAN CORPUSCULAR HGB CONC 32.1 g/dL (32.0-36.0); MEAN CORPUSCULAR VOLUME 94.9 fL (80.0-94.0); MEAN PLATELET VOLUME 10.9 fL (7.4-11.4); MONOCYTES # (AUTO) 0.6 10^3/uL (0.0-1.0); MONOCYTES % (AUTO) 9.6 %; NEUTROPHILS # (AUTO) 3.8 10^3/uL (1.5-6.6); PLT - PLATELET COUNT 195 10^3/uL (130-450); RED BLOOD COUNT 4.13 10^6/uL (4.70-6.10); RED CELL DISTRIBUTION WIDTH 12.3 % (12.0-15.0); WHITE BLOOD COUNT 6.1 x10^3/uL (4.8-10.8)
[2024-03-07 14:56] LABS: ALBUMIN 3.9 g/dL (3.2-5.5); ALBUMIN/GLOBULIN RATIO 1.8 (1.0-2.2); BILIRUBIN,TOTAL 0.8 mg/dL (0.2-1.0); CALCIUM 9.2 mg/dL (8.5-10.3); CREATININE 0.8 mg/dL (0.6-1.3); POTASSIUM 3.7 mmol/L (3.5-4.5); TOTAL PROTEIN 6.1 g/dL (6.4-8.9)
[2024-03-07] MEDS ORDERED: iohexoL-300 100 ML VIAL ONE (15:05)
[2024-03-07 15:24] LABS: INR 1.2 (0.8-1.2); PT - PROTHROMBIN TIME 12.7 secs (9.9-12.6)
[2024-03-07] MEDS: iohexoL-300 100 ML VIAL IVP ONE (15:40)
--- NOTE | 2024-03-07 16:00 | CT Report ---
PROCEDURE: Head WO INDICATIONS: Neuro deficit, acute, stroke suspected TECHNIQUE: Noncontrast 4.5 mm thick angled axial sections acquired from the foramen magnum to the vertex. For r adiation dose reduction, the following was used: automated exposure control, adjustment of mA and/or kV according to patient size. COMPARISON: None. FINDINGS: Image quality: Excellent. CSF spaces: Posterior fossa arachnoid cyst, unchanged. Basal cisterns are patent. No extra-axial fl uid collections. Ventricles are normal in size and shape. Brain: No midline shift. No intracranial masses or hemorrhage. Mcqueen-white matter interface is norm al. Skull and face: Calvarium and visualized facial bones are intact, without suspicious lesions. Sinuses: Visualized sinuses and mastoids are clear. IMPRESSION: No acute intracranial pathology. Reviewed by: Olegario Calixto MD on 03/07/2024 2:58 PM MILIND Approved by: Olegario Calixto MD on 03/07/2024 2:58 PM AKPINA Station ID: [id number]
--- NOTE | 2024-03-07 16:09 | CT Report ---
PROCEDURE: Angio Head/Neck INDICATIONS: right arm weakness TECHNIQUE: After the administration of intravenous contrast, 1 mm thick sections acquired from the aortic arch t hrough the [place]. 3-dimensional rmkpjtn-htxxnpimh-vdsxkteoeg (MIP) and/or volume renderin g reformats were acquired of the central intracranial vasculature and neck separately. For radiation dose reduction, the following was used: automated exposure control, adjustment of mA and/or kV acco rding to patient size. CONTRAST: 80ml omni 300 COMPARISON: None. FINDINGS: Image quality: Diagnostic. HEAD CT: CSF Spaces: Basal cisterns are patent. No extra-axial fluid collections. Ventricles are normal in size and shape. Brain: No significant abnormality is seen for scanning technique. Skull and face: Calvarium and visualized facial bones appear intact, without suspicious lesions. Sinuses: Visualized sinuses and mastoids are clear. HEAD CT ANGIOGRAPHY: Anterior circulation: Intracranial internal carotid arteries are normal in size and flow. The flow within the paired anterior cerebral arteries is normal and symmetric. The flow within the middle cer ebral arteries is normal and symmetric. The anterior communicating artery is seen. No aneurysms are seen. Posterior circulation: Visualized portions of the vertebral arteries demonstrate normal caliber, and join to form a normal appearing basilar artery. Flow within the posterior cerebral arteries is norm al and symmetric. No aneurysms are seen. NECK CT ANGIOGRAPHY: Carotid system: The great vessels demonstrate a conventional anatomy as they arise from the aortic a rch. The origins of the common carotid arteries appear patent. The common carotid arteries demonstr ate normal caliber and courses. The bifurcation regions are both widely patent. The internal caroti d arteries demonstrate normal calibers and courses. Posterior circulation: The origins of the vertebral arteries both appear widely patent. The more rdz perior extracranial portions of both vertebral arteries also demonstrate normal courses and calibers. They join to form a normal appearing basilar artery. Soft tissues: Visualized neck soft tissues demonstrate no suspicious abnormalities. Bones: No suspicious bony lesions. Visualized cervical spine appears normally aligned. IMPRESSION: No significant intracranial arterial abnormality is seen. No significant abnormality is seen within the arteries of the neck. Reviewed by: Olegario Calixto MD on 03/07/2024 3:08 PM MILIND Approved by: Olegario Calixto MD on 03/07/2024 3:08 PM AKPINA Station ID: [id number]
--- NOTE | 2024-03-07 18:48 | MRI Report ---
PROCEDURE: Brain WO INDICATIONS: right arm weakness x2 days TECHNIQUE: Noncontrast axial T1 spin echo, axial T2 fast spin echo, sagittal and axial FLAIR, coronal T2 fast sp in echo, axial gradient echo, axial diffusion and ADC through the brain. COMPARISON: CT head from the same day and MRI of brain dated 11/29/2021. FINDINGS: Image quality: Excellent. CSF Spaces: Basal cisterns are patent. No extra-axial fluid collections. Ventricles are normal in size and shape. Brain: No intracranial masses or hemorrhage. Mcqueen/white matter interface is normal. Brainstem appe ars normal. Diffusion-weighted images demonstrate no acute ischemic insult. No chronic ischemic ins ults. Normal intravascular flow voids are present. Diffuse age-related volume loss is seen. There i s also mild periventricular and deep white matter chronic small vessel ischemic changes. Skull and face: Calvarium has normal marrow signal. Orbits appear normal. Sinuses: Sinuses and mastoids are clear. IMPRESSION: 1. No acute infarction. No intracranial bleed, midline shift or mass effect. 2. Age-related volume loss and mild white matter chronic ischemic small vessel disease. Reviewed by: Raymundo Hoskins MD on 03/07/2024 6:47 PM PDT Approved by: Raymundo Hoskins MD on 03/07/2024 6:47 PM PDT Station ID: [id number]
[2024-03-07 19:25] VITALS: BP 182/74; O2SAT 100
== END 2024-03-07 19:41 | disposition home or self-care (01) ==
LOC: ED 13:05
DX: R43.1 Parosmia (principal); R42 Dizziness and giddiness; G20.A1 Parkinson's disease without dyskinesia, without mention of fluctuations; I10 Essential (primary) hypertension; Z79.899 Other long term (current) drug therapy
CPT/HCPCS: 36415; 70450; 70496; 70498; 70551; 80053; 83690; 85025; 85610; 93005; 99284; Q9967